=== PATIENT | female | born 1985 | race African-American/Black ===

== ENCOUNTER → 2023-04-21 08:22 | Outpatient (BNVA) | payer OTHER, SELFPAY | PROVIDERS: PCP Internal Medicine Hematology & Oncology; Visit Provider Physician Assistant Surgical ==

== ENCOUNTER 2023-05-26 08:10 | Outpatient (AMB) | payer OTHER, SELFPAY ==
--- NOTE | 2023-05-26 08:15 | A.OFFVIS_ITS ---
Intake VS Expanded 05/26/23 08:16 Height 5 ft 5 in Weight 582 lb 6.4 oz BMI 96.9 BP 154/75 H Blood Pressure Location Rt femoral Blood Pressure Position Sitting Pulse 73 Pulse Source Pulse Oximeter Temp 97.3 F Temperature Source Temporal Artery Scan Pulse Oximetry 95 Oxygen Delivery Method Room Air Body Fat 332.0 Body Fat Percentage 57.0 Free Fat Mass 250.2 Muscle Mass 237.6 Water Mass 179.2 BMR 3,999 Neck Circumference 19.75 in Waist Circumference 6 ft 6 in Intake Visit Reasons: (OV) IT APPLICATION ADMINISTRATOR SWL BMI 96.3 Theology Teacher Required: No Accompanied by: Self / Same As Patient Allergies shellfish derived Adverse Reaction (Severe, Verified 05/26/23 08:30) Anaphylaxis alcohol Adverse Reaction (Intermediate, Verified 05/26/23 08:30) Hives animal dander Adverse Reaction (Intermediate, Verified 05/26/23 08:30) Hives grass pollen Adverse Reaction (Intermediate, Verified 05/26/23 08:30) Hives spider venom Adverse Reaction (Intermediate, Verified 05/26/23 08:30) Hives Medication List - Last Reconciled 05/26/23 by Arleen Goldberg PA-C albuterol sulfate 90 mcg/actuation (Ventolin HFA) 2 puffs inhalation QID PRN amlodipine 2.5 mg PO DAILY bupropion HCl 150 mg PO Q12H ergocalciferol (vitamin D2) 1,250 mcg PO QWEEK ferrous sulfate 325 mg PO BID furosemide 20 mg PO DAILY levothyroxine 100 mcg PO DAILY lisinopril 20 mg PO DAILY tizanidine 0 mg PO HPI HPI Comments History of Present Illness Details This is a 38 year old woman who is here to start SWL program with SWL classes. Her highest weight was 627 lbs about 2-3 years ago. Used Truclicty but stopped due to no further weight loss and hair falling out. Has used other diet program since childhood with minimal weight loss each time. Her goal is to be healthy. . She reports first being concerned about her weight since childhood She has tried multiple methods of weight loss including without permanent results. She lives with her mother who had LSG at another facility. She is unemployed. Sees a dietitian for last 6 months = has lsot 16 lbs during this time. She wakes at: 6am bed at either 8:30 pm for 6 hours or goes to bed at 2am for 4 hours, always uses CPAP. Naps from 7:30 am to 10:30 am. Breakfast: 7:15 am - 1 egg with turkey sausage, potatoes or fruit. water 11 am - 5 cheese cubes, grapes and slice of turkey lunch meat. water Lunch: 1;30 pm- Premier shake with cucumber salad (cucumber, tomatoes, feta cheese and itaalian dressing) Skips lunch 4d/ week. 2:30 - mix of almonds and pecans - unsalted - half cup, grapes Dinner: 7:30 pm - baked chicken, rice and vegetables. OR turkey meatballs and vegetables. water or 0 Gatorade After dinner: Premier shake sometimes - 2d/ week. Liquids: no soda or juice or sweetened drinks Alcohol intake: ETOH, tobacco: never smoker, marijuana: none Exercise: You tube videos - 1 mile walk videos - 2d/ week. Sitting exercise videos 30 minutes once per week. Can get gym membership with pool - did water aerobics before. Last mammogram: screening once Last pap smear: needs update control method: no male sex partners LUIS M:0 ESS:0 GERD0: QOL:86 PFSH Surgical History (Updated 05/26/23 @ 08:31 by Erma Rhodes CMA) Hx of wisdom tooth extraction Family History Mother Heart murmur Diabetes Father No problems noted. Social History Alcohol intake: never Patient Tobacco Use Status: Never used Tobacco Physical Exam Vital Signs: Last Vital Signs Temp 97.3 F 05/26/23 08:16 Pulse 73 05/26/23 08:16 BP 154/75 H 05/26/23 08:16 Pulse Ox 95 05/26/23 08:16 Oxygen Delivery Method Room Air 05/26/23 08:16 BMI result Body Mass Index 96.9 Const General: cooperative, no acute distress and well developed Nutritional Appearance: obese Orientation/consciousness: patient oriented x3 HEENT Head: Yes normal to inspection Neck Neck: Yes normal visual inspection Thyroid: Thyroid normal Resp Effort & Inspection: normal respiratory effort Auscultation: clear to auscultation bilaterally Cardio Rate: regular rate Rhythm: regular rhythm Heart sounds: S1 normal heart sound present, S2 normal heart sound present and no murmurs GI Inspection: No distended, Yes Abdominal panniculus present and Yes obesity Palpation (GI): Soft to palpation, nontender and no guarding Skin General skin exam: no rashes or lesions noted and other (warm and dry) Wounds: no wounds Hair: normal Neuro General: patient oriented x3 Extrem General: Yes no pedal edema and Yes no calf tenderness Psych Attitude: cooperative Thought process: Normal thought process present Thought content: Normal thought content present Insight: Good insight present (Psych) Judgement: Good judgement present (Psych) Assessment & Plan Assessment & Plan (1) Morbid obesity: Code(s): E66.01 - Morbid (severe) obesity due to excess calories Plan: This is a 38 yo woman with super morbid obesity who will start SWL program to prepare for bariatric surgery. We had a long discussion regarding her options for wegiht loss before bariatric surgery including Obera endogastric balloon. She understands that she will need to acheive a BMI of 60 or less before surgery. Blood work, h pylori , CXR, ECG have been ordered. She is being scheduled for RD and BH initial consultations. She will start SWL classes and watch at 3 classes before her next appt with Yasmine. UGI and ULS will be ordered with weight porgress. 1. Adequate sleep of 7-8 hours per night discussed, 11 pm - 6am with CPAP. Sleep hygiene methods discussed. 2. Healthy meal plan - stop skipping meals and stop all sweetened drinks All meals/MR's need to take 20 minutes to complete 7:30 am - 30 gram shake 10:30am - 30 gram shake 1:30 pm- bar or yogurt/cc, or 2 hb eggs and cup of raw vegetables 4:30 pm - shake 7 pm- dinner of 6 oz lean protein, 8 oz vegetable, 1 serving fruit Exercise - Cardio 30 minutes daily - may do in dividied times per day. LS 1 mile walk videos and will look at [facility] sitting [facility] or others and will let me know which she prefers. The importance of avoiding and breast feeding for at least 18 months after bariatric surgery was discussed in the information session and was reinforced today. Pt will purchase body composition analyzer once her weight is below 500 lbs. For know will use her scale at home and send me weekly weights. Next appt with me in 3 weeks. Text me with any questions and weekly weights. Patient is morbidly obese and is not considered stable at this time.?I spent a total of 60 minutes reviewing/updating records, examining the patient and counseling the patient on weight management as detailed above. (2) HTN (hypertension), benign: Code(s): I10 - Essential (primary) hypertension (3) Sleep apnea: Code(s): G47.30 - Sleep apnea, unspecified (4) Asthma: Code(s): J45.909 - Unspecified asthma, uncomplicated (5) Hypothyroidism (acquired): Code(s): E03.9 - Hypothyroidism, unspecified (6) Depression with anxiety: Code(s): F41.8 - Other specified anxiety disorders Orders: Orders Vitamin B12 and Folate Today E03.9 - Hypothyroidism, unspecified, E66.01 - Morbid (severe) obesity due to excess calories, F41.8 - Other specified anxiety disorders, G47.30 - Sleep apnea, unspecified, I10 - Essential (primary) hypertension, J45.909 - Unspecified asthma, uncomplicated, Z01.818 - Encounter for other preprocedural examination Comprehensive Met. Panel Today E03.9 - Hypothyroidism, unspecified, E66.01 - Morbid (severe) obesity due to excess calories, F41.8 - Other specified anxiety disorders, G47.30 - Sleep apnea, unspecified, I10 - Essential (primary) hypertension, J45.909 - Unspecified asthma, uncomplicated, Z01.818 - Encounter for other preprocedural examination C Reactive Protein Today E03.9 - Hypothyroidism, unspecified, E66.01 - Morbid (severe) obesity due to excess calories, F41.8 - Other specified anxiety disorders, G47.30 - Sleep apnea, unspecified, I10 - Essential (primary) hypertension, J45.909 - Unspecified asthma, uncomplicated, Z01.818 - Encounter for other preprocedural examination Ferritin Today E03.9 - Hypothyroidism, unspecified, E66.01 - Morbid (severe) obesity due to excess calories, F41.8 - Other specified anxiety disorders, G47.30 - Sleep apnea, unspecified, I10 - Essential (primary) hypertension, J45.909 - Unspecified asthma, uncomplicated, Z01.818 - Encounter for other preprocedural examination Hemoglobin A1c Today E03.9 - Hypothyroidism, unspecified, E66.01 - Morbid (severe) obesity due to excess calories, F41.8 - Other specified anxiety disorders, G47.30 - Sleep apnea, unspecified, I10 - Essential (primary) hypertension, J45.909 - Unspecified asthma, uncomplicated, Z01.818 - Encounter for other preprocedural examination Insulin Today E03.9 - Hypothyroidism, unspecified, E66.01 - Morbid (severe) obesity due to excess calories, F41.8 - Other specified anxiety disorders, G47.30 - Sleep apnea, unspecified, I10 - Essential (primary) hypertension, J45.909 - Unspecified asthma, uncomplicated, Z01.818 - Encounter for other preprocedural examination IRON PROFILE Today E03.9 - Hypothyroidism, unspecified, E66.01 - Morbid (severe) obesity due to excess calories, F41.8 - Other specified anxiety disorders, G47.30 - Sleep apnea, unspecified, I10 - Essential (primary) hypertension, J45.909 - Unspecified asthma, uncomplicated, Z01.818 - Encounter for other preprocedural examination Lipid Panel Today E03.9 - Hypothyroidism, unspecified, E66.01 - Morbid (severe) obesity due to excess calories, F41.8 - Other specified anxiety disorders, G47.30 - Sleep apnea, unspecified, I10 - Essential (primary) hypertension, J45.909 - Unspecified asthma, uncomplicated, Z01.818 - Encounter for other preprocedural examination PTHI Today E03.9 - Hypothyroidism, unspecified, E66.01 - Morbid (severe) obesity due to excess calories, F41.8 - Other specified anxiety disorders, G47.30 - Sleep apnea, unspecified, I10 - Essential (primary) hypertension, J45.909 - Unspecified asthma, uncomplicated, Z01.818 - Encounter for other preprocedural examination TSH reflex Free T4 Today E03.9 - Hypothyroidism, unspecified, E66.01 - Morbid (severe) obesity due to excess calories, F41.8 - Other specified anxiety disorders, G47.30 - Sleep apnea, unspecified, I10 - Essential (primary) hypertension, J45.909 - Unspecified asthma, uncomplicated, Z01.818 - Encounter for other preprocedural examination Vitamin A Today E03.9 - Hypothyroidism, unspecified, E66.01 - Morbid (severe) obesity due to excess calories, F41.8 - Other specified anxiety disorders, G47.30 - Sleep apnea, unspecified, I10 - Essential (primary) hypertension, J45.909 - Unspecified asthma, uncomplicated, Z01.818 - Encounter for other preprocedural examination Vitamin B1 Today E03.9 - Hypothyroidism, unspecified, E66.01 - Morbid (severe) obesity due to excess calories, F41.8 - Other specified anxiety disorders, G47.30 - Sleep apnea, unspecified, I10 - Essential (primary) hypertension, J45.909 - Unspecified asthma, uncomplicated, Z01.818 - Encounter for other preprocedural examination Vitamin D 25-OH Total Today E03.9 - Hypothyroidism, unspecified, E66.01 - Morbid (severe) obesity due to excess calories, F41.8 - Other specified anxiety disorders, G47.30 - Sleep apnea, unspecified, I10 - Essential (primary) hypertension, J45.909 - Unspecified asthma, uncomplicated, Z01.818 - Encounter for other preprocedural examination Zinc Today E03.9 - Hypothyroidism, unspecified, E66.01 - Morbid (severe) obesity due to excess calories, F41.8 - Other specified anxiety disorders, G47.30 - Sleep apnea, unspecified, I10 - Essential (primary) hypertension, J45.909 - Unspecified asthma, uncomplicated, Z01.818 - Encounter for other preprocedural examination ECG 12 lead EKG Today E03.9 - Hypothyroidism, unspecified, E66.01 - Morbid (severe) obesity due to excess calories, F41.8 - Other specified anxiety disorders, G47.30 - Sleep apnea, unspecified, I10 - Essential (primary) hypertension, J45.909 - Unspecified asthma, uncomplicated, Z01.818 - Encounter for other preprocedural examination Complete Blood Count Auto Diff Today E03.9 - Hypothyroidism, unspecified, E66.01 - Morbid (severe) obesity due to excess calories, F41.8 - Other specified anxiety disorders, G47.30 - Sleep apnea, unspecified, I10 - Essential (primary) hypertension, J45.909 - Unspecified asthma, uncomplicated, Z01.818 - Encounter for other preprocedural examination H Pylori Breath Test Today E03.9 - Hypothyroidism, unspecified, E66.01 - Morbid (severe) obesity due to excess calories, F41.8 - Other specified anxiety disorders, G47.30 - Sleep apnea, unspecified, I10 - Essential (primary) hypertension, J45.909 - Unspecified asthma, uncomplicated, Z01.818 - Encounter for other preprocedural examination XR chest 2V Today E03.9 - Hypothyroidism, unspecified, E66.01 - Morbid (severe) obesity due to excess calories, F41.8 - Other specified anxiety disorders, G47.30 - Sleep apnea, unspecified, I10 - Essential (primary) hypertension, J45.909 - Unspecified asthma, uncomplicated, Z01.818 - Encounter for other preprocedural examination Referrals Behavioral Health Referral E03.9 - Hypothyroidism, unspecified, E66.01 - Morbid (severe) obesity due to excess calories, F41.8 - Other specified anxiety disorders, G47.30 - Sleep apnea, unspecified, I10 - Essential (primary) hypertension, J45.909 - Unspecified asthma, uncomplicated, Z01.818 - Encounter for other preprocedural examination Nutrition/Dietitian Referral E03.9 - Hypothyroidism, unspecified, E66.01 - Morbid (severe) obesity due to excess calories, F41.8 - Other specified anxiety disorders, G47.30 - Sleep apnea, unspecified, I10 - Essential (primary) hypertension, J45.909 - Unspecified asthma, uncomplicated, Z01.818 - Encounter for other preprocedural examination Coding Level of Care Code New Pt Level 5 (24704) Diagnoses Morbid obesity E66.01 HTN (hypertension), benign I10 Sleep apnea G47.30 Asthma J45.909 Hypothyroidism (acquired) E03.9 Depression with anxiety F41.8
[2023-05-26 08:16] VITALS: BP 154/75; PULSE 73; TEMP 36.3; O2SAT 95; BMI 96.9
== END 2023-05-26 10:27 | disposition home or self-care (01) ==
PROVIDERS: PCP Internal Medicine Hematology & Oncology; Visit Provider Physician Assistant
DX: E66.01 Morbid (severe) obesity due to excess calories (principal); Z68.45 Body mass index [BMI] 70 or greater, adult; I10 Essential (primary) hypertension; G47.30 Sleep apnea, unspecified; E03.9 Hypothyroidism, unspecified
CPT/HCPCS: 99205

== ENCOUNTER 2023-05-26 08:10 | Outpatient (REF) | payer OTHER, SELFPAY ==
--- NOTE | 2023-05-26 09:50 | ECG_ITS ---
Test Reason : MORBID OBESITY Blood Pressure : / mmHG Vent. Rate : 118 BPM Atrial Rate : 118 BPM P-R Int : 180 ms QRS Dur : 090 ms QT Int : 316 ms P-R-T Axes : 047 020 054 degrees QTc Int : 442 ms Artifact in tracing Sinus tachycardia Possible Left atrial enlargement Borderline ECG No previous ECGs available Referred By: Arleen Goldberg Electronically Signed By:ABENA BLANCHARD
[2023-05-26 10:10] LABS: MANUAL DIFF FLAG NO
[2023-05-26 11:55] LABS: Estimated Average Glucose 108 mg/dL; Hemoglobin A1c % 5.4 %
[2023-05-26 12:16] LABS: Basophils Percent Auto 0.3 % (0-2); Eosinophils Absolute Auto 0.3 X10*3/uL (0.0-0.4); Eosinophils Percent Auto 3.5 % (0-4); Hematocrit 39.9 % (37.0-47.0); Hemoglobin 11.9 g/dl (12.0-16.0); Imm Gran Abs Auto 0.03 X10*3/uL (0.00-0.03); Imm Gran Pct Auto 0.4 % (0.0-0.4); Mean Corpuscular HGB Conc 29.8 g/dl (31.0-35.0); Mean Corpuscular Volume 67.2 fL (80.0-98.0); Mean Platelet Volume 10.3 fL (9.4-12.3); Monocytes Absolute Auto 0.3 X10*3/uL (0.1-1.2); Monocytes Percent Auto 4.6 % (2-11); Neutrophils Absolute Auto 4.6 x10*3/uL (2.0-8.3); Neutrophils Percent Auto 63.2 % (45-73); Platelet Count 312 X10*3/uL (160-400); Red Blood Count 5.94 X10*6/uL (4.20-5.50); Red Cell Distribution Width 18.8 % (11.0-16.0); White Blood Count 7.2 X10*3/uL (4.8-10.8)
[2023-05-26 12:50] LABS: Alanine Aminotransferase 14 U/L (0-31); Albumin Level 3.9 g/dL (3.5-5.0); Alkaline Phosphatase 81 U/L (39-117); Anion Gap 19 (12-20); Aspartate Amino Transferase 14 U/L (5-31); Bilirubin Total 0.4 mg/dL (0.0-1.0); Blood Urea Nitrogen 13 mg/dL (9-16); C Reactive Protein 3.86 mg/dL (< or = 0.50); Calcium 9.3 mg/dL (8.4-10.2); Carbon Dioxide 22 mmol/L (22-29); Chloride 103 mmol/L (96-108); Cholesterol 135 mg/dL; Estimated Glomerular Filt Rate 56; Glucose Random 85 mg/dL (60-115); HDL Cholesterol 49 mg/dL; Iron 48 mcg/dL (30-160); LDL Cholesterol Calculated 66 mg/dl; Percent Iron Saturation 18 % (15-50); Potassium 3.8 mmol/L (3.3-5.1); Sodium 140 mmol/L (135-145); Total Iron Binding Capacity 267 mcg/dL (228-428); Triglycerides 101 mg/dL; Unsaturated Iron Binding 219 ug/dL
[2023-05-26 13:09] LABS: Ferritin 309 ng/mL (10-122); Insulin 30 uU/mL (2-29); TSH reflex Free T4 4.91 uIU/mL (0.32-4.0); Vitamin D 25-OH Total 19.6 ng/mL (>30)
[2023-05-26 13:36] LABS: Folate 7.4 ng/mL (> or = 4.0); Vitamin B12 714 pg/mL (200-900)
[2023-05-26 14:17] LABS: Free T4 (Free Thyroxine) 0.93 ng/dL (0.71-1.85)
[2023-05-27 19:04] LABS: PTHI 170 pg/mL (16-77)
[2023-05-29 01:58] LABS: Zinc 84 mcg/dL (60-130)
[2023-05-29 16:13] LABS: Vitamin B1 7 nmol/L (8-30)
[2023-05-30 02:49] LABS: Vitamin A 32 mcg/dL (38-98)
== END 2023-05-26 08:11 | disposition home or self-care (01) ==
LOC: HO.LAB 08:10
PROVIDERS: PCP Internal Medicine Hematology & Oncology; Visit Provider Physician Assistant
DX: Z01.818 Encounter for other preprocedural examination (principal); E66.01 Morbid (severe) obesity due to excess calories; I10 Essential (primary) hypertension; G47.30 Sleep apnea, unspecified; J45.909 Unspecified asthma, uncomplicated; E03.9 Hypothyroidism, unspecified; F41.8 Other specified anxiety disorders; Z71.3 Dietary counseling and surveillance; Z68.45 Body mass index [BMI] 70 or greater, adult; Z79.899 Other long term (current) drug therapy
CPT/HCPCS: 36415; 80053; 80061; 82306; 82607; 82728; 82746; 83036; 83525; 83540; 83970; 84425; 84439; 84443; 84590; 84630; 85025; 86140; 93005; 99202; 99211

== ENCOUNTER → 2023-05-26 09:50 | Outpatient (BNV) | payer OTHER, SELFPAY | PROVIDERS: PCP Internal Medicine Hematology & Oncology; Visit Provider Internal Medicine | DX: R00.0 Tachycardia, unspecified (principal) | CPT/HCPCS: 93010 ==

== ENCOUNTER 2023-05-27 20:10 | Outpatient (REF) | payer OTHER, SELFPAY ==
[2023-05-28 18:36] LABS: H Pylori Breath Test Negative (Negative)
== END 2023-05-27 20:11 | disposition home or self-care (01) ==
LOC: HO.LNP 20:10
PROVIDERS: Visit Provider Physician Assistant
DX: Z01.818 Encounter for other preprocedural examination (principal); E66.01 Morbid (severe) obesity due to excess calories
CPT/HCPCS: 83013

== ENCOUNTER 2023-06-09 13:12 | Outpatient (AMB) | payer OTHER, SELFPAY ==
--- NOTE | 2023-06-09 13:09 | MHC.AMNUTRGE ---
Intake Intake Visit Reasons: VIDEO Initial Nutrition [facility] City Administrator Required: No Allergies shellfish derived Adverse Reaction (Severe, Verified 05/26/23 08:30) Anaphylaxis alcohol Adverse Reaction (Intermediate, Verified 05/26/23 08:30) Hives animal dander Adverse Reaction (Intermediate, Verified 05/26/23 08:30) Hives grass pollen Adverse Reaction (Intermediate, Verified 05/26/23 08:30) Hives spider venom Adverse Reaction (Intermediate, Verified 05/26/23 08:30) Hives HPI Nutrition Presentation Reason for consult elevated BMI Diet Assmnt Details Just got everything today to start her nutrition plan , hasn't started yet. She likes her nutrition plan and feels that it will be easy to follow. Bought premier premier, did not buy bars because too expensive. Exercise: None yet, but she will begin 20-30 minutes daily standing up, sitting down [facility] online classes: 0; discussed with pt and she can take them when she gets closer to surgery. Pt states she wants to put surgery on the backburner but still does want to go this route. She wants to try diet and exercise first . Explained that she needs to lose weight in preparation for WLS regardless. Previous weight loss methods attempted Abena , worked with a dietitian Amanda ; highest weight per pt - 627 BMI 104.3 Dietary counseling reduction Diagnosis Nutrition problem #1 overweight/obesity As related to (etiology) #1 excess energy intake and physical inactivity As evidenced by (sign/symptom) #1 high BMI Monitoring/Goals Nutrition problem monitoring total energy intake, level of knowledge/skill, total PRO intake, total CHO intake and weight Outcome progress verbalized understanding Learning/Education Readiness to learn good Stages of change preparation Educational materials provided Yes Most Recent Diabetes Results: Cholesterol 135 mg/dL 05/26/23 HDL Cholesterol 49 mg/dL 05/26/23 Triglycerides 101 mg/dL 05/26/23 Creatinine 1.10 mg/dL (0.5-1.4) 05/26/23 Blood Urea Nitrogen 13 mg/dL (9-16) 05/26/23 Sodium 140 mmol/L (135-145) 05/26/23 Potassium 3.8 mmol/L (3.3-5.1) 05/26/23 Chloride 103 mmol/L (96-108) 05/26/23 Carbon Dioxide 22 mmol/L (22-29) 05/26/23 Calcium 9.3 mg/dL (8.4-10.2) 05/26/23 AST 14 U/L (5-31) 05/26/23 ALT 14 U/L (0-31) 05/26/23 Total Protein 8.0 g/dL (6.5-8.0) 05/26/23 Albumin 3.9 g/dL (3.5-5.0) 05/26/23 PFSH Surgical History (Updated 05/26/23 @ 08:31 by Erma Rhodes CMA) Hx of wisdom tooth extraction Family History Mother Heart murmur Diabetes Father No problems noted. Social History Alcohol intake: never Patient Tobacco Use Status: Never used Tobacco Assessment & Plan Assessment & Plan (1) Morbid obesity: Code(s): E66.01 - Morbid (severe) obesity due to excess calories Patient Instructions: She will begin her nutrition plan today but recommended adding in extra supplement and arranging meal times slightly: ? ? 7:30 am - 30 gram shake ? ? 10:30am - 30 gram shake ? ? 12:30 pm- bar or yogurt/cc, or 2 hb eggs and cup of raw vegetables 2:30pm - same ? ? 4:30 pm - shake ? ? 7 pm- dinner of 6 oz lean protein, 8 oz vegetable, 1 serving fruit She will also start exercising today 20-30 minutes standing up, sitting down. Patient will discuss her desire to postpone surgery with Arleen but explained it will take her time to get to surgery. Sent pt educational handouts, but I will not have her take the classes yet as she requested to wait. She also wanted to cancel her BH appt but I encouraged she keep it until she meets with Arleen Telehealth Telehealth Location of provider rendering services: practice address Location of patient: address on file Patient Identification confirmed using: Name, : Yes Telehealth method: video Patient verbally consented to treatment: Yes Patient verbally consented to billing insurance company: Yes Patient informed of any privacy concerns related to visit: Yes Minutes spent on Phone/Video with Pt.: 30 Coding Level of Care Code Nutr Indiv Intake (03615) Diagnoses Morbid obesity E66.01 Time Spent (min) 30
== END 2023-06-09 13:29 | disposition home or self-care (01) ==
LOC: HO.HBS 13:12
PROVIDERS: PCP Internal Medicine Hematology & Oncology; Visit Provider Dietitian, Registered
DX: E66.01 Morbid (severe) obesity due to excess calories (principal)

== ENCOUNTER → 2023-06-09 13:12 | Outpatient (BNVA) | payer OTHER, SELFPAY | PROVIDERS: PCP Internal Medicine Hematology & Oncology; Visit Provider Dietitian, Registered | DX: E66.01 Morbid (severe) obesity due to excess calories (principal); Z71.3 Dietary counseling and surveillance | CPT/HCPCS: 97802 ==

== ENCOUNTER 2023-08-25 09:24 | Outpatient (AMB) | payer OTHER, SELFPAY ==
--- NOTE | 2023-08-25 09:29 | MHC.OFFVISWM ---
Intake VS Expanded 08/25/23 09:39 BP 135/63 Blood Pressure Location Lt brachial Blood Pressure Position Sitting Pulse 98 Pulse Source Pulse Oximeter Pulse Oximetry 98 Oxygen Delivery Method Room Air Height 5 ft 5 in Weight 541 lb 3.2 oz BMI 90.1 Body Fat % 57.5 Body Fat Mass 310.8 Fat Free Mass 230.2 Body Water % 57.5 Body Water Mass 310.8 Muscle Mass/Score 218.6 Basal Metabolic Rate/Score 3,633 Intake Visit Reasons: (OV) F/U SWL Intake Note: Patient is seen in office for office visit, following surgical weight loss. Breaker Tender Required: No Accompanied by: Self / Same As Patient Allergies shellfish derived Adverse Reaction (Severe, Verified 08/25/23 09:49) Anaphylaxis alcohol Adverse Reaction (Intermediate, Verified 08/25/23 09:49) Hives animal dander Adverse Reaction (Intermediate, Verified 08/25/23 09:49) Hives grass pollen Adverse Reaction (Intermediate, Verified 08/25/23 09:49) Hives spider venom Adverse Reaction (Intermediate, Verified 08/25/23 09:49) Hives Medication List - Last Reconciled 08/25/23 by Arleen Goldberg PA-C albuterol sulfate 90 mcg/actuation (Ventolin HFA) 2 puffs inhalation QID PRN amlodipine 2.5 mg PO DAILY bupropion HCl 150 mg PO Q12H cholecalciferol (vitamin D3) 50 mcg PO DAILY ferrous sulfate 325 mg PO BID levothyroxine 100 mcg PO DAILY lisinopril 20 mg PO DAILY thiamine HCl (vitamin B1) 50 mg PO DAILY tizanidine 0 mg PO HPI HPI Comments History of Present Illness Details This is the patients second appt for SWL. Starting weight was 582.4 lbs on 05/26/23. TBWL is 41.4 lbs or 7% TBWL. Meal plan: 6am - Premier RTD shake 8am - yogurt 12pm - yogurt 2pm -shake 4pm - shake 6pm - fruit 7:30 pm - dinner - salmon and cauliflower rice mostly Exercise - Veterinary Virus Serum Inspector appt for kidney function on October 01. Has appt with endocrinoloigst for TSH in . Exercise plan:none now, stopped due to kkidney pain. Sit to be Fit and other sitting videos. Pre op work up completed as follows: SWL classes - 11/03 BH appts - none yet RD appts - needs follow up H pylori - negative Labs - low Vit D, B1, A and anemia. Elevated TSH and PTH CXR - not done yet ECG - borderline ULS and UGI - not ordered yet Contraception- no male sex partner PFSH Surgical History Hx of wisdom tooth extraction Family History Mother Heart murmur Diabetes Father No problems noted. Social History Alcohol intake: never Patient Tobacco Use Status: Never used Tobacco Physical Exam Vital Signs: Last Vital Signs Pulse 98 08/25/23 09:39 BP 135/63 08/25/23 09:39 Pulse Ox 98 08/25/23 09:39 Oxygen Delivery Method Room Air 08/25/23 09:39 BMI result Body Mass Index 90.1 Assessment & Plan Assessment & Plan (1) Morbid obesity: Code(s): E66.01 - Morbid (severe) obesity due to excess calories Plan: Pt has not been seen since HAIR DRESSER in April - has lost 41 lbs so far, understands that she needs to loose significant weight BMI<60 before bariatric surgery. Adequate meal plan - small chnges Meals every 2.5 hours now, measure meaal in 12 forsk each Use variety of protien and vegetables daily Exercise - restart sitting videos - PE or other - 30 minutes at least 4 days per week. Staart LS 1 mile videos 1 d/week now and increaase to 2 d within 2 weeks. Will get BH appt and CXR now. Will order ULS an UGI when weight closer to 500lbs. Next appt in 3 weeks via telehealth with me. Patient is morbidly obese and is not considered stable at this time. I spent 30 minutes in total with patient reviewing/updating records, examining the patient and counseling the patient on weight management as detailed above. (2) HTN (hypertension), benign: Code(s): I10 - Essential (primary) hypertension (3) Sleep apnea: Code(s): G47.30 - Sleep apnea, unspecified (4) Hypothyroidism (acquired): Code(s): E03.9 - Hypothyroidism, unspecified Coding Level of Care Code Est Pt Level 4 (39821) Diagnoses Morbid obesity E66.01 HTN (hypertension), benign I10 Sleep apnea G47.30 Hypothyroidism (acquired) E03.9
[2023-08-25 09:39] VITALS: BP 135/63; PULSE 98; O2SAT 98; BMI 90.1
== END 2023-08-25 10:20 | disposition home or self-care (01) ==
PROVIDERS: PCP Internal Medicine Hematology & Oncology; Visit Provider Physician Assistant
DX: E66.01 Morbid (severe) obesity due to excess calories (principal); I10 Essential (primary) hypertension; G47.30 Sleep apnea, unspecified; Z68.45 Body mass index [BMI] 70 or greater, adult; E03.9 Hypothyroidism, unspecified
CPT/HCPCS: 99214

== ENCOUNTER → 2023-08-25 09:24 | Outpatient (BNVA) | payer OTHER, SELFPAY | PROVIDERS: PCP Internal Medicine Hematology & Oncology; Visit Provider Physician Assistant | DX: E66.01 Morbid (severe) obesity due to excess calories (principal); E03.9 Hypothyroidism, unspecified; G47.30 Sleep apnea, unspecified; I10 Essential (primary) hypertension; Z68.45 Body mass index [BMI] 70 or greater, adult | CPT/HCPCS: 99212 ==

== ENCOUNTER 2023-10-01 09:00 | Outpatient (AMB) | payer OTHER, SELFPAY ==
--- NOTE | 2023-10-01 09:07 | A.OFFVIS_ITS ---
Intake VS Expanded 10/01/23 09:19 BP 134/85 Height 5 ft 5 in Weight 540 lb BMI 89.9 Intake Visit Reasons: VIDEO F/U SWL Allergies shellfish derived Adverse Reaction (Severe, Verified 08/25/23 09:49) Anaphylaxis alcohol Adverse Reaction (Intermediate, Verified 08/25/23 09:49) Hives animal dander Adverse Reaction (Intermediate, Verified 08/25/23 09:49) Hives grass pollen Adverse Reaction (Intermediate, Verified 08/25/23 09:49) Hives spider venom Adverse Reaction (Intermediate, Verified 08/25/23 09:49) Hives HPI HPI Comments History of Present Illness Details [facility]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 Appts in Jul and now. Feels lightheaded occasionally and eats sugar (hr mother told her to). Does not check BP at that time. States she gained weight when eating [place]oria beans, no further weight change. Meal plan: 9:30 am - Premier RTD 12 pm - Oikos yogurt 2pm - Premer shake 4:30 - Premier shake 7pm - 14 -15 forks ground chicken or tur travis salmon and 14 forks green beans and cauliflower rice - using cream of mushroom soup BP - down to 120's and 130's - not checking frequently. Exercise - LS videos with 5 lbs. 1 mile 3 d/ week. Pre op work up completed as follows: [facility] classes - 11/03 - does not have link BH appts - none yet, scheduled x 2 - she states she was unaware of these RD appts - needs follow up H pylori - negative Labs - low Vit D, B1, A and anemia. Elevated TSH and PTH CXR - not done yet ECG - borderline ULS and UGI - not ordered yet Contraception- no male sex partner PFSH Surgical History Hx of wisdom tooth extraction Family History Mother Heart murmur Diabetes Father No problems noted. Social History Alcohol intake: never Patient Tobacco Use Status: Never used Tobacco Assessment & Plan Assessment & Plan (1) Morbid obesity: Code(s): E66.01 - Morbid (severe) obesity due to excess calories Plan: Pt has not had a weight change recently, I encouraged her again to text me weekly with her weights. She will be given access today again for SW[facility] classes, scheduled for and follow up RD appointments. I did not make any changes to her meal plan today, but encouraged her to take her BP daily and if feels lightheaded. She was asked to text me if her SBP is under 135. Exercise - must increase. LS 1 mile videso every day and then can walk in evenings for 15 minutes. I have ordered the rest of her pre op work up with the hope that this will cedric vate her more to comply with program requirements. Next appt 3 weeks with me. Patient is still morbidly obese and is not considered stable at this time. I spent 30 minutes in total speaking with the patient via video conference counseling , reviewing records and charting in patients chart. . (2) HTN (hypertension), benign: Code(s): I10 - Essential (primary) hypertension Plan: check BP dialy (3) Sleep apnea: Code(s): G47.30 - Sleep apnea, unspecified Plan: see above (4) Hypothyroidism (acquired): Code(s): E03.9 - Hypothyroidism, unspecified Plan see above Orders: Orders US abdomen comp w elastography Today E03.9 - Hypothyroidism, unspecified, E66.01 - Morbid (severe) obesity due to excess calories, G47.30 - Sleep apnea, unspecified, I10 - Essential (primary) hypertension [place] upper GI series Today E03.9 - Hypothyroidism, unspecified, E66.01 - Morbid (severe) obesity due to excess calories, G47.30 - Sleep apnea, unspecified, I10 - Essential (primary) hypertension Telehealth Telehealth Location of provider rendering services: practice address Location of patient: address on file Patient Identification confirmed using: Name, : Yes Telehealth method: video Patient verbally consented to treatment: Yes Patient verbally consented to billing insurance company: Yes Patient informed of any privacy concerns related to visit: Yes Coding Level of Care Code Tele Est Pt Level 4 (04119) Diagnoses Morbid obesity E66.01 HTN (hypertension), benign I10 Sleep apnea G47.30 Hypothyroidism (acquired) E03.9
[2023-10-01 09:19] VITALS: BP 134/85; BMI 89.9
== END 2023-10-01 09:39 | disposition home or self-care (01) ==
LOC: HO.HBS 09:32
PROVIDERS: PCP Internal Medicine Hematology & Oncology; Visit Provider Physician Assistant
DX: E66.01 Morbid (severe) obesity due to excess calories (principal); I10 Essential (primary) hypertension; G47.30 Sleep apnea, unspecified; E03.9 Hypothyroidism, unspecified
CPT/HCPCS: 99214

== ENCOUNTER → 2023-10-01 09:00 | Outpatient (BNVA) | payer OTHER, SELFPAY | PROVIDERS: PCP Internal Medicine Hematology & Oncology; Visit Provider Physician Assistant | DX: E66.01 Morbid (severe) obesity due to excess calories (principal); I10 Essential (primary) hypertension; G47.30 Sleep apnea, unspecified; E03.9 Hypothyroidism, unspecified ==